=== PATIENT | female | born 1950 | race Caucasian/White ===

== ENCOUNTER 2017-09-27 00:27 | Emergency (ER) | payer OTHER ==
[~2017-09-27] VITALS: Ht 167.6 cm; Wt 81.5 kg
[2017-09-27 00:46] LABS: APPEARANCE CLOUDY ((CLEAR)); BILIRUBIN NEGATIVE; BLOOD NEGATIVE; COLOR YELLOW ((YELLOW)); GLUCOSE (STRIP) NEGATIVE; KETONES NEGATIVE; LEUKOCYTES NEGATIVE; NITRITE NEGATIVE; PROTEIN (STRIP) NEGATIVE; SPECIFIC GRAVITY 1.016 (1.000-1.030); UROBILINOGEN 0.2 MG/DL (0.2-1.0)
[2017-09-27 00:52] LABS: HEMATOCRIT 44.3 % (36.0-46.0); HEMOGLOBIN 14.8 G/DL (11.9-15.5); MCH 28.7 PG (29.0-34.0); MCHC 33.4 G/DL (30.0-36.0); PLATELET COUNT 199 K/uL (156-360); RBC DIS.WIDTH-CV 13.1 % (11.8-14.6); RBC DIS.WIDTH-SD 40.9 % (39-53); RED BLOOD COUNT 5.15 M/uL (3.80-5.20); WHITE BLOOD COUNT 7.6 K/uL (4.1-10.2)
[2017-09-27 01:08] LABS: CHLORIDE 108 mEq/L (99-109); POTASSIUM 4.4 mEq/L (3.7-5.4); SODIUM 141 mEq/L (136-147)
[2017-09-27 01:10] LABS: GLUCOSE 132 mg/dL (70-99)
[2017-09-27 01:14] LABS: CREATININE 1.1 mg/dL (0.6-1.3); GFR ESTIMATE (CALCULATED) 52 mL/min/
[2017-09-27 01:15] LABS: UREA NITROGEN (BUN) 21 mg/dL (9-23)
[2017-09-27 01:20] LABS: BACTERIA RARE /HPF; EPITHELIAL CELLS RARE /HPF; MUCUS RARE /LPF; RED BLOOD CELLS 0-5 /HPF (0-5); UCUL ADDED? NO; WHITE BLOOD CELLS 0-5 /HPF (0-5)
[2017-09-27] MEDS ORDERED: FLOMAX0.4 MG PO (02:59)
[2017-09-27] MEDS ORDERED: PERCOCET 5/31 TABLET PO (02:59)
[2017-09-27] MEDS ORDERED: ZOFRAN4 MG PO (02:59)
[2017-09-27 03:31] VITALS: BP 147/56
== END 2017-09-27 03:38 | disposition home or self-care (01) ==
LOC: EME 00:27
DX: N13.2 Hydronephrosis with renal and ureteral calculous obstruction (principal); K76.89 Other specified diseases of liver; K21.9 Gastro-esophageal reflux disease without esophagitis; E78.5 Hyperlipidemia, unspecified; Z87.442 Personal history of urinary calculi
CPT/HCPCS: 74176; 80048; 81003; 85027; J1885; J2270; J2405